=== PATIENT | male | born 1965 | race American Indian/Alaskan Native ===

== ENCOUNTER 2017-06-23 08:16 | Emergency (ER) | payer MEDICAID ==
[2017-06-23] MEDS: Sodium Chloride 0.9% 10 ML Syringe FLUSH PRN ×2 (08:24→10:20)
--- NOTE | 2017-06-23 08:52 | EDM.PDOC ---
<Delfina Carr - Last Filed: 06/23/17 09:30> ED HPI GENERAL MEDICAL PROBLEM - General Chief Complaint: Chest Pain Stated Complaint: [id number] CHEST PAIN Time Seen by Provider: 06/23/17 08:40 Source of Information: Reports: Patient, RN, RN Notes Reviewed History Limitations: Reports: No Limitations - History of Present Illness INITIAL COMMENTS - FREE TEXT/NARRATIVE: Pt presents to the ER with c/o epigastric discomfort. Patient states this discomfort feels as a fluttering in the chest. He states his Victoza was increased 2 days ago, and that is when this feeling began. He states he does have some SOB at times with this feeling. Denies N/V/D, fever, chills, sore throat or cough. Onset: Gradual Duration: Intermittent Location: Reports: Chest Severity: Mild Improves with: Reports: None Worsens with: Reports: None Epigastric Pain Score (Numeric/FACES): 4 - Related Data Allergies Allergy/AdvReac Type Severity Reaction Status Date / Time acetaminophen [From Tylenol] Allergy Liver Verified 08/24/13 21:57 Problems celecoxib [From Celebrex] Allergy Vomiting Verified 08/24/13 21:57 ibuprofen AdvReac Severe Liver Verified 11/29/13 08:36 Problems Home Meds: Home Meds Insulin Glarg,Human.Rec.Analog [Lantus Solostar] 30 units SUBCUT BEDTIME [History] Lisinopril 40 mg PO DAILY 04/17/13 [History] Insulin Aspart [Novolog] 12 unit SQ ACBREAKFAST 06/23/17 [History] Insulin Aspart [Novolog] 12 unit SQ ACLUNCH 06/23/17 [History] Insulin Aspart [Novolog] 15 unit SQ ACDINNER 06/23/17 [History] Liraglutide [Victoza 3-Augustus] 1.8 mg SQ DAILY 06/23/17 [History] Past Medical History HEENT History: Reports: Impaired Vision Cardiovascular History: Reports: Hypertension Musculoskeletal History: Reports: Arthritis, Back Pain, Chronic Psychiatric History: Reports: Anxiety Endocrine/Metabolic History: Reports: IDDM Social & Family History - Family History Family Medical History: Noncontributory - Tobacco Use Smoking Status *Q: Never Smoker Second Hand Smoke Exposure: No - Caffeine Use Caffeine Use: Reports: None - Recreational Drug Use Recreational Drug Use: No - Living Situation & Occupation Living situation: Reports: with Family, Occupation: Disabled ED ROS GENERAL - Review of Systems Review Of Systems: ROS reveals no pertinent complaints other than HPI. ED EXAM, GENERAL - Physical Exam Exam: See Below Exam Limited By: No Limitations General Appearance: Alert, WD/WN, No Apparent Distress Eye Exam: Bilateral Eye: EOMI, Normal Inspection Ears: Normal External Exam, Hearing Grossly Normal Nose: Normal Inspection Throat/Mouth: Normal Inspection, Normal Voice, No Airway Compromise Head: Atraumatic, Normocephalic Neck: Normal Inspection, Supple, Non-Tender, Full Range of Motion Respiratory/Chest: No Respiratory Distress, Lungs Clear, Normal Breath Sounds, No Accessory Muscle Use, Chest Non-Tender Cardiovascular: Normal Peripheral Pulses, Regular Rate, Rhythm, No Edema, No Gallop, No JVD, No Murmur, No Rub Peripheral Pulses: 2+: Radial (L), Radial (R) GI/Abdominal: Normal Bowel Sounds, Soft, Non-Tender (Male) Exam: Deferred Rectal (Males) Exam: Deferred Back Exam: Normal Inspection, Full Range of Motion Extremities: Normal Inspection, Normal Range of Motion, Non-Tender, No Pedal Edema, Normal Capillary Refill Neurological: Alert, Oriented, CN II-XII Intact, Normal Cognition, Normal Gait, Normal Reflexes, No Motor/Sensory Deficits Psychiatric: Normal Affect, Normal Mood Skin Exam: Warm, Dry, Intact, Normal Color, No Rash Lymphatic: No Adenopathy EKG INTERPRETATION EKG Date: 06/23/17 Time: 08:18 Rhythm: NSR Rate (Beats/Min): 91 [place]: Normal P-Wave: Present QRS: Normal ST-T: Normal QT: Normal Comparison: No Change Course - Vital Signs Last Recorded V/S: Last Vital Signs Temp 97.6 F 06/23/17 08:32 Pulse 94 06/23/17 08:32 Resp 21 H 06/23/17 08:32 BP 112/65 06/23/17 08:32 Pulse Ox 100 06/23/17 08:32 - Orders/Labs/Meds Orders: Active Orders 24 hr Category Date Time Status EKG Documentation Completion [RC] STAT Care 06/23/17 08:46 Active Peripheral IV Care [RC] . DIRECTED Care 06/23/17 08:47 Active Chest 1V Frontal [CR] Stat Exams 06/23/17 08:46 Taken UA W/MICROSCOPIC [URIN] Stat Lab 06/23/17 09:52 Ordered Sodium Chloride 0.9% [Saline Flush] Med 06/23/17 08:46 Active 10 ml FLUSH ASDIRECTED PRN Peripheral IV Insertion Adult [OM.PC] Stat Oth 06/23/17 08:46 Ordered Medication Orders Sodium Chloride (Saline Flush) 10 ml FLUSH ASDIRECTED PRN PRN Reason: Keep Vein Open Last Admin: 06/23/17 10:20 Dose: 10 ml Admin: 06/23/17 08:24 Dose: 10 ml Labs: Laboratory Tests 06/23/17 06/23/17 06/23/17 Range/Units 08:25 08:25 09:52 WBC 7.4 (5.0-10.0) 10^3/uL RBC 4.82 (4.6-6.2) 10^6/uL Hgb 14.6 (14.0-18.0) g/dL Hct 44.4 (40.0-54.0) % MCV 92.1 (80-100) fL MCH 30.3 (27.0-34.0) pg MCHC 32.9 L (33.0-35.0) g/dL Plt Count 288 (150-450) 10^3/uL Neut % (Auto) 54.6 (42.2-75.2) % Lymph % (Auto) 34.2 (20.5-50.1) % [place] % (Auto) 8.2 H (2-8) % Eos % (Auto) 2.7 (1.0-3.0) % Baso % (Auto) 0.3 (0.0-1.0) % Sodium 135 (135-145) mmol/L Potassium 4.3 (3.6-5.0) mmol/L Chloride 100 L (101-111) mmol/L Carbon Dioxide 28.0 (21.0-31.0) mmol/L Anion Gap 11.3 BUN 17 (7-18) mg/dL Creatinine 0.9 (0.6-1.3) mg/dL Est Cr Clr Drug Dosing 95.00 mL/min Estimated GFR (MDRD) > 60 BUN/Creatinine Ratio 18.88 Glucose 182 H (74-105) mg/dL Calcium 9.0 (8.4-10.2) mg/dl Total Bilirubin 0.4 (0.2-1.0) mg/dL AST 34 (10-42) IU/L ALT 31 (10-60) IU/L Alkaline Phosphatase 39 L (42-121) IU/L Troponin I < 0.02 (0.00-0.02) ng/ml Total Protein 7.8 (6.7-8.2) g/dl Albumin 3.6 (3.2-5.5) g/dl Globulin 4.2 Albumin/Globulin Ratio 0.86 Amylase 46 (28-100) U/L Lipase 37 (22-51) U/L Urine Color Yellow (YELLOW) Urine Appearance Clear (CLEAR) Urine pH 6.5 (5.0-9.0) Ur Specific [place] 1.020 (1.005-1.030) Urine Protein Negative (NEGATIVE) Urine Glucose (UA) Negative (NEGATIVE) Urine Ketones Negative (NEGATIVE) Urine Occult Blood Negative (NEGATIVE) Urine Nitrite Negative (NEGATIVE) Urine Bilirubin Negative (NEGATIVE) Urine Urobilinogen 0.2 (0.2-1.0) mg/dL Ur Leukocyte Esterase Negative (NEGATIVE) Urine RBC 0-5 /HPF Urine WBC 0-5 (0-5/HPF) /HPF Ur Epithelial Cells Occasional /HPF Urine Bacteria Few (0-FEW/HPF) /HPF Meds: Medications Generic Name Dose Route Start Last Admin Trade Name Javier PRN Reason Stop Dose Admin Sodium Chloride 10 ml 06/23/17 08:46 06/23/17 10:20 Saline Flush FLUSH 10 ml ASDIRECTED PRN Administration Keep Vein Open Discontinued Medications Generic Name Dose Route Start Last Admin Trade Name Javier PRN Reason Stop Dose Admin Al Hydroxide/Mg Hydroxide 30 ml 06/23/17 09:14 06/23/17 09:24 Gi Cocktail PO 06/23/17 09:15 30 ml ONETIME ONE Administration Famotidine 20 mg 06/23/17 10:15 06/23/17 10:19 Pepcid IVPUSH 06/23/17 10:16 20 mg ONETIME ONE Administration - Radiology Interpretation Free Text/Narrative:: Chest xray: No acute findings See rad report Departure - Departure Disposition: Home, Self-Care 01 Clinical Impression: Gastritis Qualifiers: Gastritis type: other gastritis Chronicity: acute Gastritis bleeding: without bleeding Qualified Code(s): K29.00 - Acute gastritis without bleeding Adverse drug effect Qualifiers: Encounter type: initial encounter Qualified Code(s): T88.7XXA - Unspecified adverse effect of drug or medicament, initial encounter Instructions: Gastritis, Adult, [id number] Forms: ED Department Discharge Additional Instructions: omeprazole 20mg one daily #30 Clinic follow up on Sunday to discuss medications urgent follow up if chest pain, or shortness of breath bland diet <Yaneth Lucas - Last Filed: 06/23/17 10:48> Departure - Departure Time of Disposition: 10:46 Condition: Good
[2017-06-23 09:08] LABS: CHLORIDE,CL 100 mmol/L (101-111); SODIUM,NA 135 mmol/L (135-145)
[2017-06-23] MEDS ORDERED: GI Cocktail Oral Solution 30 ML PO ONE (09:14)
[2017-06-23] MEDS ORDERED: Famotidine 20 MG/2 ML SDV IVPUSH ONE (10:15)
[2017-06-23 11:05] VITALS: BP 133/92
--- NOTE | 2017-06-26 07:59 | EKG ---
06/23/2017- EVE NEFF - FINDINGS: EKG per my reading, shows sinus rhythm at the rate of 91. [facility] /[id number]
== END 2017-06-23 10:57 | disposition home or self-care (01) ==
LOC: DL.ED 08:16
DX: K29.00 Acute gastritis without bleeding (principal); R06.02 Shortness of breath; T50.995A Adverse effect of other drugs, medicaments and biological substances, initial encounter; I10 Essential (primary) hypertension; E11.9 Type 2 diabetes mellitus without complications; Z88.6 Allergy status to analgesic agent; Z88.8 Allergy status to other drugs, medicaments and biological substances; Z79.4 Long term (current) use of insulin
CPT/HCPCS: 36415; 71045; 80053; 81001; 82150; 83690; 84484; 85025; 93005; 96374; 99285; A9270; J7050; S0028

== ENCOUNTER 2018-10-27 13:38 | Emergency (ER) | payer SELFPAY ==
[2018-10-27 14:08] VITALS: BP 156/92; PULSE 105
== END 2018-10-27 14:31 | disposition left against medical advice (07) ==
LOC: DL.ED 13:38
DX: Z53.21 Procedure and treatment not carried out due to patient leaving prior to being seen by health care provider (principal)
CPT/HCPCS: 99282

== ENCOUNTER 2021-05-02 08:30 | Emergency (ER) | payer MEDICAID ==
[2021-05-02 08:49] VITALS: BP 118/100; PULSE 104
[2021-05-02 09:06] LABS: AMPHETAMINES,URINE NEGATIVE (NEGATIVE); BARBITURATES,URINE NEGATIVE (NEGATIVE); BENZODIAZEPINE,URINE NEGATIVE (NEGATIVE); MDMA (ECSTASY), URINE NEGATIVE (NEGATIVE); METHADONE,URINE NEGATIVE (NEGATIVE); METHAMPHETAMINES,URINE NEGATIVE (NEGATIVE); OPIATES,URINE NEGATIVE (NEGATIVE); OXYCODONE,URINE NEGATIVE (NEGATIVE); PHENCYCLIDINE,URINE NEGATIVE (NEGATIVE); TCA,URINE NEGATIVE (NEGATIVE)
[2021-05-02 09:18] LABS: ANION GAP 14.6 mEq/L (7-13); CHLORIDE,CL 101 mmol/L (98-107); SODIUM,NA 140 mmol/L (136-145)
[2021-05-02] MEDS ORDERED: GI Cocktail Oral Solution 30 ML PO ONE (09:24)
== END 2021-05-02 10:07 | disposition home or self-care (01) ==
LOC: DL.ED 08:30
DX: K21.9 Gastro-esophageal reflux disease without esophagitis (principal); I10 Essential (primary) hypertension; E11.9 Type 2 diabetes mellitus without complications; Z88.8 Allergy status to other drugs, medicaments and biological substances; Z79.4 Long term (current) use of insulin; Z79.899 Other long term (current) drug therapy
CPT/HCPCS: 36415; 71045; 80053; 80305-QW; 80307; 81003; 82150; 83605; 83690; 83880; 84484; 85025; 86140; 93005; 99285-25; A9270-GY

== ENCOUNTER 2023-09-12 20:36 | Emergency (ER) | payer BC, MEDICAID ==
[2023-09-12 20:57] LABS: BASOPHILS PERCENT AUTO 0.2 % (0.0-1.0); EOSINOPHILS PERCENT AUTO 1.3 % (1.0-3.0); HEMATOCRIT 44.8 % (40.0-54.0); HEMOGLOBIN 14.4 g/dL (14.0-18.0); LYMPHOCYTES PERCENT AUTO 17.3 % (20.5-50.1); MEAN CORPUSCULAR HGB CONC 32.1 g/dL (33.0-35.0); MEAN CORPUSCULAR VOLUME 93.3 fL (80-100); MONOCYTES PERCENT AUTO 4.9 % (2-8); NEUTROPHILS PERCENT AUTO 76.3 % (42.2-75.2); PLATELET COUNT,PLT 367 10^3/uL (150-450)
[2023-09-12] MEDS: Morphine 2 MG/ML SYRINGE IVPUSH ONE (21:07)
[2023-09-12] MEDS: Morphine 4 MG/ML Syringe IM ONE (21:08)
[2023-09-12 21:18] LABS: A/G RATIO 0.7; ALBUMIN 3.5 g/dL (3.4-5.0); ANION GAP 12.4 mEq/L (7-13); BILIRUBIN TOTAL 0.3 mg/dL (0.2-1.0); BUN/CREATININE RATIO 20.7 (No establ ref range); CALCIUM 9.6 mg/dL (8.5-10.1); CREATININE 1.35 mg/dL (0.70-1.30); EST CRCL DRUG DOSING (CG) 57.12 mL/min; POTASSIUM,K 4.4 mmol/L (3.5-5.1); PROTEIN TOTAL,TP 8.2 g/dL (6.4-8.2)
[2023-09-12 21:26] LABS: D-DIMER QUANTITATIVE < 100 ng/mL (0-400)
[2023-09-12] MEDS: Piperacillin/Tazobactam 4.5 GM in Sodium Chloride 0.9% 100 ML IV ONE (21:42)
[2023-09-12 22:18] VITALS: BP 111/64; PULSE 98
== END 2023-09-12 22:14 | disposition home or self-care (01) ==
LOC: DL.ED 20:36
DX: L03.116 Cellulitis of left lower limb (principal); I10 Essential (primary) hypertension; E66.9 Obesity, unspecified; Z68.43 Body mass index [BMI] 50.0-59.9, adult; Z90.49 Acquired absence of other specified parts of digestive tract; Z79.4 Long term (current) use of insulin; Z88.8 Allergy status to other drugs, medicaments and biological substances; Z79.899 Other long term (current) drug therapy
CPT/HCPCS: 36415; 80053; 85025; 85379; 85610; 96365; 96375; 99283; J2270; J2543; J3490

== ENCOUNTER 2024-11-03 18:36 | Emergency (ER) | payer MEDICAID ==
[2024-11-03] MEDS ORDERED: Sodium Chloride 0.9% 10 ML Syringe FLUSH PRN (18:53)
[2024-11-03 18:56] VITALS: PULSE 92
[2024-11-03 19:08] LABS: BASOPHILS PERCENT AUTO 0.3 % (0.0-1.0); EOSINOPHILS PERCENT AUTO 2.2 % (1.0-3.0); LYMPHOCYTES PERCENT AUTO 35.4 % (20.5-50.1); MONOCYTES PERCENT AUTO 6.1 % (2-8); NEUTROPHILS PERCENT AUTO 56.0 % (42.2-75.2); PLATELET COUNT,PLT 326 10^3/uL (150-450); RED BLOOD CELL COUNT 4.61 10^6/uL (4.6-6.2); WHITE BLOOD CELL COUNT,WBC 9.2 10^3/uL (5.0-10.0)
[2024-11-03 19:26] LABS: INR 0.9 (0.9-1.2); PTT,PARTIAL THROMBOPLSTIN TIME 25.2 SEC (22.0-34.0)
[2024-11-03 19:28] LABS: A/G RATIO 0.71; ALANINE AMINOTRANSFERASE,ALT 30.0 U/L (16-63); ASPARTATE AMNIOTRANSFERASE,AST 28.0 U/L (15-37); BILIRUBIN TOTAL 0.2 mg/dL (0.2-1.0); BLOOD UREA NITROGEN,BUN 25.0 mg/dL (7-18); CARBON DIOXIDE,CO2 27.0 mmol/L (21-32); CHLORIDE,CL 103.0 mmol/L (98-107); CREATININE 1.19 mg/dL (0.70-1.30); EST CRCL DRUG DOSING (CG) 64.03 mL/min; ESTIMATED GFR 71.0 mL/min (>=60); GLUCOSE RANDOM 163.0 mg/dL (70-99); POTASSIUM,K 4.1 mmol/L (3.5-5.1); PROTEIN TOTAL,TP 7.7 g/dL (6.4-8.2); SODIUM,NA 138.0 mmol/L (136-145)
[2024-11-03 19:33] LABS: B-TYPE NATRIURETIC PEPTIDE,BNP 35.0 pg/ml (0-100)
[2024-11-03 19:44] LABS: D-DIMER QUANTITATIVE < 100 ng/mL (0-400)
[2024-11-03 20:02] VITALS: BP 139/123
[2024-11-03] MEDS: Nitroglycerin 0.4 MG Tab.SL SL PRN (20:02)
[2024-11-03] MEDS: Heparin Sodium 5,000 Units/ML Vial IVPUSH ONE (20:11)
[2024-11-03] MEDS: Heparin Sodium/0.45% NaCl 25,000 UNITS/500 ML BAG IV SCH (20:13)
== END 2024-11-03 20:20 | disposition left against medical advice (07) ==
LOC: DL.ED 18:36
DX: I20.0 Unstable angina (principal); E66.01 Morbid (severe) obesity due to excess calories; E78.2 Mixed hyperlipidemia; E11.69 Type 2 diabetes mellitus with other specified complication; I10 Essential (primary) hypertension; E66.9 Obesity, unspecified; Z88.8 Allergy status to other drugs, medicaments and biological substances; Z86.79 Personal history of other diseases of the circulatory system; Z68.43 Body mass index [BMI] 50.0-59.9, adult; Z79.4 Long term (current) use of insulin; Z79.899 Other long term (current) drug therapy; Z90.49 Acquired absence of other specified parts of digestive tract
CPT/HCPCS: 36415; 71045; 80053; 83880; 84484; 85025; 85379; 85610; 85730; 93005; 93010; 96374; 99285; A9270; J1644